=== PATIENT | female | born 1935 | race Caucasian/White ===

== ENCOUNTER → 2017-01-27 | Outpatient (CLI) | payer MEDICARE, BC ==
[~2017-01-27] MED LIST: ALPRAZOLAM PO; EFFEXOR XR PO; EFFEXOR-XR150 MG PO; LANSOPRAZOLE30 M2 PO; MOBIC PO; PHENERGAN PO; PREVACID PO; ULTRAM PO; VICODIN 5/500 T1 TAB PO; VOLTAREN50 MG PO; XANAX0.5 MG PO
--- NOTE | ~2017-01-27 | MR113 ---
[facility] A Service of [facility] & [facility] / [facility] RADIOLOGY TEXT RESULTS PATIENT: RUBENS FREEMAN LOCATION: [facility] : 37 UNIT #: [id number] AGE: [address]: Joni Herrera MD SEX: F ORDER DR: [id number] [place] [id number] O MR#: [id number] Acc #: [id number] NAME: RUBENS FREEMAN : 1935 SEX: F STUDY DATE/TIME: 01/27/2017 11:00 UNIT: [facility] ROOM: STUDY DESCRIPTION: MR Lumbar Wo Contrast Attending Physician: Joni Herrera M.D. Referring Physician: Joni Herrera M.D. Ordering Physician: Joni Herrera M.D. Primary Care Physician: Mayuri Felder M.D. MRI CENTER REPORT This report is preliminary unless electronic signature is present. EXAM MRI of the lumbar spine without. HISTORY Spinal stenosis, unable to walk long distances, low back pain with left-sided radiculopathy for 7-8 months. No history of cancer. COMMENT MRI of the lumbar spine performed without contrast using routine 1.5T imaging technique. COMPARISON STUDIES Plain films from 2015. Previous MRI from 09/21/2014. FINDINGS There is redemonstration of grade 1 anterolisthesis of L4 on L5 secondary to facet arthritis. This measures about 4 mm and is unchanged to slightly progressed from prior. Bone marrow signal intensity is unremarkable. The conus medullaris terminates at L2 level and is normal. The discs are desiccated in general. At L1-2, mild facet degenerative change. Minor posterior disc bulge. No canal or foraminal impingement. L2-3, lgzy-mb-iqdkrwzd facet degenerative change with some mild ligamentum flavum thickening. There is mild concentric disc bulge. Mild effacement of the anterior thecal sac. Mild inferior foraminal narrowing bilaterally. At L3-4, moderate facet degenerative change worse to the left with mild ligamentum flavum thickening. There is mild broad-based posterior disc protrusion more focal to the left side posterolaterally. There is mild central canal stenosis and mass effect on the left lateral recess. There [facility]. [facility] A Service of [facility] RADIOLOGY TEXT RESULTS PATIENT: RUBENS FREEMAN LOCATION: [facility] : 37 UNIT #: [id number] AGE: [address]: Joni Herrera MD SEX: F ORDER DR: is mild left-sided foraminal narrowing. At L4-5, severe facet arthritis accounts for the anterolisthesis of 4 on 5, and there is broad-based posterior disc protrusion. Thmm-jz-vhnklxob ligamentum flavum thickening and the combination of findings result in fairly severe canal stenosis with mass effect on the bilateral-lateral recesses. There is mild left and nzsa-kp-wfseqjrc right-side foraminal narrowing. At L5-S1, moderate facet degenerative change bilaterally with moderate ligamentum flavum thickening. No canal stenosis. No foraminal impingement. Partly seen are bilateral renal cysts. On comparison to the study from 2014, there is subtle progression of the canal stenosis at the 4-5 level and 3-4 level. The more focal mass effect on the left lateral recess at 3-4 is probably new. IMPRESSION 1. Redemonstration of lumbar degenerative disease most apparent radiographically at L4-5, to a lesser extent L3-4. At the 4-5 level there is again grade 1 anterolisthesis of L4 on L5 secondary to severe facet arthritis likely with subtle progression. There is severe canal stenosis related to the combination of findings at the 4-5 level. Please refer to the multiple level findings in the comment section. Dictated by... Paz Livingston M.D. THIS IS AN ELECTRONICALLY VERIFIED REPORT Paz Livingston M.D. at 01/29/2017 8:24 AM JOSE L/gaby TD: 01/28/2017 17:48 JOB #: [id number] MRI CENTER REPORT Page 1 of 1
--- NOTE | ~2017-01-27 | MR176 ---
[facility]. [facility] A Service of [facility] & [facility] RADIOLOGY TEXT RESULTS PATIENT: RUBENS FREEMAN LOCATION: [facility] : 37 UNIT #: [id number] AGE: [address]: Joni Herrera MD SEX: F ORDER DR: [id number] [address] [id number] O MR#: [id number] Acc #: [id number] NAME: RUBENS FREEMAN : 1935 SEX: F STUDY DATE/TIME: 01/27/2017 10:33 UNIT: [facility] ROOM: STUDY DESCRIPTION: MR Thoracic Wo Contrast Attending Physician: Joni Herrera M.D. Referring Physician: Joni Herrera M.D. Ordering Physician: Joni Herrera M.D. Primary Care Physician: Mayuri Felder M.D. MRI CENTER REPORT This report is preliminary unless electronic signature is present. EXAM Thoracic MRI. HISTORY Mid-back pain. Difficulty walking. Symptoms for the past 7-8 months. TECHNIQUE Multiplanar imaging of the thoracic spine was performed with short and long TR. FINDINGS Alignment is satisfactory. There are degenerative changes at all thoracic discs most prominently at the mid thoracic and lower thoracic levels where there is disc space narrowing with posterior disc and osteophyte formation. At T2-3 there is ventral displacement and flattening of the cord by a CSF containing lesion consistent with an arachnoid cyst. This flattens the cord in the AP dimension. The cord is otherwise normal elsewhere in the thoracic spine. No cord compression is seen. At T10-11 there is asymmetric right-sided posterior facet hypertrophy. It causes mild canal narrowing on the right side. There is no evidence of marrow edema. No paraspinous soft tissue masses are seen. IMPRESSION 1. 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 This potential source for myelopathy. 2. Multilevel thoracic degenerative disc disease most prominent at the pha-iz-edeuo thoracic levels with small posterior disc osteophyte formation noted. This causes only mild canal narrowing. Dictated by... Jim Haas M.D. [facility] A Service of [facility] & [facility] RADIOLOGY TEXT RESULTS PATIENT: RUBENS FREEMAN [id number] 37 UNIT #: [id number] AGE: [address]: Joni Herrera MD SEX: F ORDER DR: THIS IS AN ELECTRONICALLY VERIFIED REPORT Jim Haas M.D. at 01/28/2017 6:47 PM TRI/gaby TD: 01/28/2017 15:40 JOB #: [id number] MRI CENTER REPORT Page 1 of 1
== END | disposition home or self-care (01) ==
LOC: SMRI 01-18 10:15
DX: M48.06 Spinal stenosis, lumbar region (principal); M51.34 Other intervertebral disc degeneration, thoracic region; M25.78 Osteophyte, vertebrae; M51.36 Other intervertebral disc degeneration, lumbar region; M43.16 Spondylolisthesis, lumbar region
CPT/HCPCS: 72146; 72148